=== PATIENT | female | born 1945 | race Hispanic/Latino ===

== ENCOUNTER → 2017-06-10 | Outpatient (CLI) | payer MEDICARE ==
--- NOTE | 2017-06-10 15:43 | Diagnostic Imaging Report ---
Exam: Bone mineral density study. History: Osteoporosis. Wedge compression fracture. Comparison: None Discussion: Evaluation of the left hip and lumbar spine was performed utilizing DEXA Hologic bone densitometer. The study is technically adequate. The patient's fracture risk is compared to an age-matched control. The patient denies prior surgery/fracture of the spine, hips or forearm. Left hip femoral neck bone mineral density: 0.669 g/cm2, T-score is -1.7, Z-score is 0.3. No previous comparison. Left hip total bone mineral density: 0.780 g/cm2, T-score is -1.4, Z-score is 0.4. No previous comparison. The FRAX 10-year probability of major osteoporotic fracture is 6.5% and hip fracture is 1.3%. These probabilities assume the patient is untreated. Lumbar spine total bone mineral density: 0.967 gm/cm2, T-score is -0.7, Z-score is 1.6. No previous comparison. Impression: 1. Bone mineralization by WHO Classification: Osteopenia. the fracture risk is increased. Recommendations: Medical evaluation for secondary causes of low bone mineral density may be appropriate. Correlate clinically for the necessity and timing of the next bone mineral density study. National [employer]opor[employer] recommendations: Initiate therapy to reduce fracture risk in postmenopausal women with -BMD t-scores below -2 by central DXA with no risk factors -BMD t-scores below -1.5 by central DXA with one or more risk factors (first deg relative with hip fracture, prior personal fracture, low body weight, smoking) -A prior vertebral or hip fracture AACE (Clinical Endocrinology) recommends treating the following: Postmenopausal women who have osteoporosis as diagnosed by fragility fractures or t scores -2.5 or below Postmenopausal women who have risk factors (including fh of hip fracture, low body weight, smoking, risk of falling, high bone turnover, advancing age) and borderline low BMD T scores of -1.5 or below Adequate intake of calcium (at least 1200mg/day) and vitamin D (400-800 IU/day). Regular weight bearing and muscle - strengthening exercises Avoid smoking and excessive alcohol Signed by: Dr. Abbi Aguilar M.D. on 06/10/2017 3:40 PM
== END ==
LOC: DX 12:37
PROVIDERS: ATTEND Specialist
DX: S32.010A Wedge compression fracture of first lumbar vertebra, initial encounter for closed fracture (principal); M81.0 Age-related osteoporosis without current pathological fracture
CPT/HCPCS: 77080